=== PATIENT | female | born 1945 | race Two or more races ===

== ENCOUNTER 2021-01-24 12:14 | Outpatient (CLI) | payer OTHER | END 2021-01-24 12:18 | disposition home or self-care (01) | LOC: SONOGRAMA 12:14 | PROVIDERS: ATTEND Pathology Anatomic Pathology & Clinical Pathology | DX: D34 Benign neoplasm of thyroid gland (principal); E04.2 Nontoxic multinodular goiter ==

== ENCOUNTER 2022-03-06 22:59 | Inpatient (IN) | payer OTHER ==
[~2022-03-06] VITALS: Ht 157.5 cm; Wt 54.4 kg
[2022-03-06] MEDS ORDERED: CHILDREN'S FLO5.9 ML (23:20)
[2022-03-06] MEDS ORDERED: CETIRIZINE HCL10 MG (23:20)
[2022-03-06] MEDS ORDERED: GLIPIZIDE5 MG (23:20)
[2022-03-06] MEDS ORDERED: ATORVASTATIN CA40 MG (23:20)
[2022-03-06] MEDS ORDERED: AMLODIPINE BESYL5 MG (23:20)
[2022-03-06] MEDS ORDERED: ALENDRONATE SOD70 MG (23:21)
[2022-03-06] MEDS ORDERED: GABAPENTIN800 M1 (23:21)
[2022-03-06] MEDS ORDERED: VITAMIN D21250 MCG (23:21)
[2022-03-06] MEDS ORDERED: METFORMIN HCL750 MG (23:21)
[2022-03-06] MEDS ORDERED: ZYNCOF 20-400120 ML (23:22)
[2022-03-06] MEDS ORDERED: XOPENEX0.63 MG/3 (23:22)
== END 2022-03-23 22:39 | disposition home or self-care (01) | DRG 186 ==
LOC: ER 22:59 → SURH 03-07 14:14 → MEDI 03-07 14:14 → SURH 03-07 14:46
PROVIDERS: ADMIT Internal Medicine; ATTEND Internal Medicine
PROC: BW24YZZ Computerized Tomography (CT Scan) of Chest and Abdomen using Other Contrast (ICD-10-PCS; 2022-03-07)
PROC: 0W993ZX Drainage of Right Pleural Cavity, Percutaneous Approach, Diagnostic (ICD-10-PCS; principal; 2022-03-10)
PROC: 0W9930Z Drainage of Right Pleural Cavity with Drainage Device, Percutaneous Approach (ICD-10-PCS; 2022-03-12)
PROC: 02HV33Z Insertion of Infusion Device into Superior Vena Cava, Percutaneous Approach (ICD-10-PCS; 2022-03-12)
PROC: BW24YZZ Computerized Tomography (CT Scan) of Chest and Abdomen using Other Contrast (ICD-10-PCS; 2022-03-12)
PROC: 0W9930Z Drainage of Right Pleural Cavity with Drainage Device, Percutaneous Approach (ICD-10-PCS; 2022-03-14)
PROC: BW24ZZZ Computerized Tomography (CT Scan) of Chest and Abdomen (ICD-10-PCS; 2022-03-17)
PROC: 0W9930Z Drainage of Right Pleural Cavity with Drainage Device, Percutaneous Approach (ICD-10-PCS; 2022-03-22)
DX: J90 Pleural effusion, not elsewhere classified (principal); J86.9 Pyothorax without fistula; N39.0 Urinary tract infection, site not specified; J98.11 Atelectasis; K57.32 Diverticulitis of large intestine without perforation or abscess without bleeding; R06.02 Shortness of breath; R09.02 Hypoxemia; J45.30 Mild persistent asthma, uncomplicated; I10 Essential (primary) hypertension; E11.9 Type 2 diabetes mellitus without complications; Z79.4 Long term (current) use of insulin; Z85.3 Personal history of malignant neoplasm of breast

== ENCOUNTER → 2022-04-30 | Outpatient (CLI) | payer OTHER ==
[~2022-04-30] MED LIST: ALENDRONATE SOD70 MG; AMLODIPINE BESYL5 MG; ATORVASTATIN CA40 MG; CETIRIZINE HCL10 MG; CHILDREN'S FLO5.9 ML; GABAPENTIN800 M1; GLIPIZIDE5 MG; METFORMIN HCL750 MG; VITAMIN D21250 MCG; XOPENEX0.63 MG/3; ZYNCOF 20-400120 ML
== END | disposition home or self-care (01) ==
LOC: NUCLEAR 07:00
DX: R59.0 Localized enlarged lymph nodes (principal)
CPT/HCPCS: 78816; A9552